=== PATIENT | female | born 1935 | race Caucasian/White ===

== ENCOUNTER 2017-05-16 12:50 | Inpatient (IN) | payer MEDICARE ==
[2017-05-16] MEDS ORDERED: NITROGLYCERIN SL TABS 0.4 MG TAB SUBLINGUAL PRN (13:22)
[2017-05-16] MEDS ORDERED: MORPHINE SULFATE/PF 10MG/10ML VL IVP PRN (13:22)
--- NOTE | 2017-05-16 13:22 | ED ---
Chest Pain HPI - General Chief Complaint: Chest Pain Stated Complaint: Chest pain Time Seen by Provider: 05/16/17 12:59 Source: patient, EMS Mode of arrival: EMS - History of Present Illness Initial Comments: 81 years old female was transferred to us from [facility], she presented there for chest pain for in the morning, first troponin was negative second troponin now was elevated was a 0.053 she was heparinized and [facility] that he requested to transfer and will go to [facility] she was chest pain-free she has a chronic shortness of breath which is ongoing for a long time she denies any pleuritic chest pain no fever no chills she is not coughing up any phlegm no abdominal pain now no frequency urgency dysuria no symptoms of TIA or CVA. She had the EKG done at [facility] showed ST segment depression in 23 aVF and V4 V5 and V6 SX he was unremarkable x-ray showed a questionable infiltrate Is 144 amylase 84 creatinine was 1.7 - Related Data Allergies Allergy/AdvReac Type Severity Reaction Status Date / Time No Known Allergies Allergy Verified 05/16/17 12:53 Review of Systems ROS Statement: Those systems with pertinent positive or pertinent negative responses have been documented in the HPI. ROS Other: All systems not noted in ROS Statement are negative. Past Medical History Past Medical History: Hyperlipidemia, Myocardial Infarction ([place]) Additional Past Medical History / Comment(s): MIGRAINES History of Any Multi-Drug Resistant Organisms: None Reported Past Surgical History: Hysterectomy Past Psychological History: No Psychological Hx Reported Smoking Status: Never smoker Past Alcohol Use History: None Reported Past Drug Use History: None Reported General Exam - General Exam Comments Initial Comments: General: The patient is awake and alert, in no distress, and does not appear acutely ill. Skin: Skin is warm and dry and no rashes or lesions are noted. Eye: Pupils are equal, round and reactive to light, extra-ocular movements are intact; there is normal conjunctiva bilaterally. Ears, nose, mouth and throat: There are moist mucous membranes and no oral lesions. Neck: The neck is supple, there is no tenderness or JVD. Cardiovascular: There is a regular rate and rhythm. No murmur, rub or gallop is appreciated. Respiratory: To auscultation bilateral, crease breath sounds at the bases Gastrointestinal: Soft, non-distended, non-tender abdomen without masses or organomegaly noted. There is no rebound or guarding present. Bowel sounds are unremarkable. Back: There is no tenderness to palpation in the midline. There is no obvious deformity. Musculoskeletal: Normal ROM, no tenderness, There is no pedal edema. There is no calf tenderness or swelling. No cords were appreciated. Neurological: CN II-XII intact, Cranial nerves III through XII are intact. There are no obvious motor or sensory deficits. Coordination appears grossly intact. Speech is normal. Psychiatric: Cooperative, appropriate mood & affect, normal judgment. Course Vital Signs 05/16/17 12:53 Pulse Rate 78 Respiratory 16 Rate - Reevaluation(s) Reevaluation #1: He be admitted to Dr. Brizuela service I think Dr. Etienne is covering him today she artillery or naval gunfire observer consulted 05/16/17 13:21 Disposition Clinical Impression: Chest pain, Pneumonia Disposition: ADMITTED IP TO THIS HOSP Condition: Good Referrals: Irwin Brandon MD [Primary Care Provider] - 1-2 days
[2017-05-16] MEDS ORDERED: SUMAtriptan SUCCINATE 50 MG TAB PO PRN (13:28)
[2017-05-16] MEDS ORDERED: HEPARIN SOD,PORK IN 0.45% NACL 25,000 UNIT in 0.45% NACL 1 500ML.BAG IV SCH (13:30)
[2017-05-16] MEDS ORDERED: MORPHINE ORAL SOLN 10 MG/5 ML CUP PO PRN (15:21)
[2017-05-16] MEDS ORDERED: MELATONIN 3 MG TABLET PO PRN (15:21)
[2017-05-16] MEDS ORDERED: NALOXONE 0.4 MG/ML 1 ML VIAL IV PRN (15:21)
[2017-05-16] MEDS ORDERED: ONDANSETRON 4 MG/2 ML VIAL IVP PRN (15:21)
[2017-05-16 15:27] LABS: Creatine Kinase MB 1.8 ng/mL (0.0-2.4)
[2017-05-16 15:37] LABS: Troponin I 0.143 ng/mL (0.000-0.034)
[2017-05-16] MEDS ORDERED: CALCIUM CARBONATE 500 MG CHEWABLE PO PRN (15:40)
--- NOTE | 2017-05-16 15:42 | P.HPMEDMHU ---
History of Present Illness H&P Date: 05/16/17 Chief Complaint: chest pain Patient is an 81-year-old -[place] African female with a past medical history of hypertension, prior myocardial infarction in 2003, and chronic kidney disease who initially presented to [facility] emergency department with complaints of chest pain. On arrival there she was given a dose of nitro and had immediate relief of her 10/10 chest pain. Her initial troponin was less than 0.012. EKG showed normal sinus rhythm at a rate of 71, normal axis, normal intervals, no ST-T wave changes. Second troponin 4 hours later was increased at 0.053. She was started on a heparin drip and subsequently transferred to our facility. Her BNP was normal at 80, amylase and lipase were negative, mag and phosphorus were normal. Sodium was 142 potassium 4.9 chloride 110 bicarb 19 BUN 42 creatinine 1.7 glucose 108. CBC was normal. PT PTT were normal. On arrival to our ER here she was slightly hypertensive and was on a heparin drip. She was subsequently admitted to the selective care unit. Cardiology has been consulted. Patient seen and examined at bedside. She states that she awoke suddenly with chest pain at around 4 AM this morning. At that point in time she took 2 aspirin chewed them. She thought it felt like indigestion so she tried Tums without relief. She felt nauseated. She denied any change of her shortness of breath. She was not dizzy, diaphoretic, or lightheaded. The pain radiated to her back and was a 10 out of 10. She denied any unusual numbness or tingling. She states she recently ran out of her cholesterol medications. She saw a automatic head sawyer in [place] Dr. Byers last September from a hospital follow-up. She states that she had a stress test 3 years ago at [facility]. She has been having worsening shortness of breath sounds in August. She states she was hospitalized for a week in [place] and they did a battery of tests but were unable to find an answer. She denies having a stress test at that point in time. She states that her shortness of breath is so severe she now gets winded walking from the bedroom to the bathroom. She denies any cough or wheeze. She states that her chest pain was relieved with nitro at [place] and has not come back. She has no prior history of high blood pressure. She does know about chronic kidney disease that she follows with nephrology. Review of Systems Positives and negatives as per HPI, remainder of 12 point review of system is negative. Past Medical History Past Medical History: GERD/Reflux, Hyperlipidemia, Myocardial Infarction ([place]) Additional Past Medical History / Comment(s): MIGRAINES, gout, kidney disease follows with nephrology. never had chicken pox Last Myocardial Infarction Date:: unk History of Any Multi-Drug Resistant Organisms: None Reported Additional Past Surgical History / Comment(s): D&C, johanna cataract(lens implants), egd, colonoscopy, heart cath years ago by dr laurent Past Anesthesia/Blood Transfusion Reactions: No Reported Reaction Smoking Status: Never smoker Past Alcohol Use History: None Reported Past Drug Use History: None Reported Additional History: Lives with her son and daughter, no assistive device - Past Family History Mother Family Medical History: Myocardial Infarction ([place]), Pneumonia Additional Family Medical History / Comment(s): . hx smoking Father Family Medical History: Liver Disease Additional Family Medical History / Comment(s): alcoholic/cirrhosis Medications and Allergies Home Medications Medication Instructions Recorded Confirmed Type Aspirin EC [Ecotrin Low Dose] 81 mg PO DAILY 05/16/17 05/16/17 History SUMAtriptan SUCCINATE [Imitrex] 50 mg PO DAILY PRN 05/16/17 05/16/17 History Allergies Allergy/AdvReac Type Severity Reaction Status Date / Time No Known Allergies Allergy Verified 05/16/17 13:22 Physical Exam Osteopathic Statement: *. No significant issues noted on an osteopathic structural exam other than those noted in the History and Physical/Consult. Vitals: Vital Signs Temp Pulse Resp BP Pulse Ox 05/16/17 13:57 68 20 170/97 100 05/16/17 13:46 68 16 168/90 100 05/16/17 12:53 97.3 F L 78 16 177/91 99 Intake and Output 05/16/17 05/16/17 05/16/17 06:59 14:59 22:59 Other: Weight 102.058 kg General: non toxic, no distress, appears at stated age, normal weight Derm: no unusual rashes/lesions no unusual ecchymoses, warm, dry Head: atraumatic, normocephalic, symmetric Eyes: EOMI, no lid lag, anicteric sclera, pupils equal round reactive to light ENT: Nose and ears atraumatic, no thrush, no pharyngeal erythema Neck: No thyromegaly, no cervical lymphadenopathy, trachea midline, supple Mouth: no lip lesion, mucus membranes moist Cardiovascular: S1S2 reg, no murmur, positive posterior tibial pulse bilateral, no edema, capillary refill less than 2 seconds Lungs: CTA bilateral, no rhonchi, no rales , no accessory muscle use Abdominal: soft, nontender to palpation, no guarding, no appreciable organomegaly, normal bowel sounds Ext: no gross muscle atrophy, muscle strength 5 out of 5 in all 4 extremities grossly, no contractures, Neuro: CN II-XI grossly intact, light touch intact all 4 extremities, finger to nose within normal limits, Psych: Alert, oriented, appropriate affect Cranial Nerve Examination - Cranial Nerves Cranial Nerve II- Optic: Intact Cranial Nerve III- Oculomotor: Intact Cranial Nerve IV- Trochlear: Intact Cranial Nerve V- Trigeminal: Intact Cranial Nerve - Abducens: Intact Cranial Nerve VII- Facial: Intact Cranial Nerve VIII- Auditory: Intact Cranial Nerve IX- Glossopharyngeal: Intact Cranial Nerve X- Vagus: Intact Cranial Nerve XI- Accessory: Intact Cranial Nerve XII- Hypoglossal: Intact Results Comments: Reviewed and as per HPI Chest x-ray: report reviewed Thrombosis Risk Factor Assmnt - DVT/VTE Prophylaxis DVT/VTE Prophylaxis: Pharmacologic Prophylaxis ordered Assessment and Plan Assessment: Chest pain with mildly elevated troponin -Also with increasing dyspnea which could be considered anginal equivalent. -Nitro drip, beta ling, aspirin, Lipitor -Trend troponins -Gentle IV fluids incase cath need in the morning -Nothing by mouth after midnight -Consult cardiology -Telemetry -Repeat EKG -Patient will not do chemical stress test. She states she had a bad reaction in the past. States she had multiple testing done at [facility] in August and will attend to obtain records. Hypertensive urgency -No formal diagnosis of hypertension as outpatient -Start metoprolol 12.5 mg by mouth twice a day -Hold beta ling and morning for possible stress test Dyslipidemia -Lipitor -Check cholesterol profile in a.m. Chronic kidney disease -Unknown baseline, creatinine 1.7 with GFR of 38 at [facility] -Repeat basic metabolic profile in a.m. -If worsening or changes consider nephrology consult GERD -When necessary Tums Social stressors - no PCP currently. Surrogate decision-maker: Daughter Emeli Lawrence CODE STATUS:Full DVT prophylaxis: on Heparin gtt Discussed with: Patient, family, nursing Anticipated discharge: 48-[address]: home A total of 65 minutes was spent on the care of this complex patient more than 50 % of the time was spent in counseling and care coordination.
[2017-05-16] MEDS: METOPROLOL TARTRATE 12.5 MG TAB PO SCH ×2 (16:57→23:49)
[2017-05-16] MEDS: SODIUM CHLORIDE 0.9% 1,000 ML IV SCH (16:57)
[2017-05-16] MEDS ORDERED: METOPROLOL TARTRATE 12.5 MG TAB PO SCH (21:00)
[2017-05-16 21:31] LABS: Creatine Kinase MB 1.9 ng/mL (0.0-2.4)
[2017-05-16 21:35] LABS: Troponin I 0.247 ng/mL (0.000-0.034)
[2017-05-16] MEDS: ATORVASTATIN 40 MG TAB PO SCH (23:49)
[2017-05-17] MEDS: ACETAMINOPHEN TAB 325 MG TAB PO PRN ×2 (06:09→11:09)
[2017-05-17 06:47] LABS: HCT 34.4 % (34.0-46.0); HGB 11.2 gm/dL (11.4-16.0); MCHC 32.6 g/dL (31.0-37.0); MCV 88.8 fL (80.0-100.0); Mean Platelet Volume 7.8; Platelet Count 135 k/uL (150-450); RBC 3.87 m/uL (3.80-5.40); RDW 13.5 % (11.5-15.5); WBC 6.5 k/uL (3.8-10.6)
[2017-05-17 07:26] LABS: Magnesium 1.5 mg/dL (1.6-2.3)
[2017-05-17 07:29] LABS: Calcium 9.8 mg/dL (8.4-10.2); Potassium 4.8 mmol/L (3.5-5.1)
[2017-05-17 08:02] LABS: Lymphocytes # (M) 2.28 k/uL (1.0-4.8); Monocytes # (M) 0.59 k/uL (0-1.0); Neutrophils # (M) 3.45 k/uL (1.3-7.7); Neutrophils % (M) 53 %; Nucleated Red Blood Cells 0 /100 WBC (0-0); Total Cells Counted 100
[2017-05-17] MEDS ORDERED: SODIUM CHLORIDE 0.9% 250 ML IV ONE ×2 (08:34→14:15)
[2017-05-17] MEDS ORDERED: ALPRAZolam 0.5 MG TAB PO PRN (08:35)
[2017-05-17] MEDS ORDERED: NITROGLYCERIN SL TABS 0.4 MG TAB SUBLINGUAL PRN ×2 (08:35→13:17)
[2017-05-17] MEDS ORDERED: ASPIRIN 325 MG TAB PO STA (08:35)
[2017-05-17] MEDS ORDERED: ALPRAZolam 0.25 MG TAB PO PRN (08:35)
[2017-05-17] MEDS ORDERED: ATORVASTATIN 80 MG TAB PO STA (08:35)
[2017-05-17] MEDS: SODIUM CHLORIDE 0.9% 1,000 ML IV SCH ×3 (08:41→23:10)
[2017-05-17] MEDS ORDERED: ASPIRIN 325 MG TAB PO SCH (09:00)
[2017-05-17] MEDS: METOPROLOL TARTRATE 12.5 MG TAB PO SCH (09:24)
--- NOTE | 2017-05-17 09:28 | CONS ---
CONSULTATION CHIEF COMPLAINT: Chest pain. This is an 81-year-old lady with no significant past medical history who presents to hospital complaining of chest pain. She states that she woke up from sleep, had a chest pressure, moderate to severe intensity that radiated to her back and she became somewhat short of breath. She comes in and she initially presented to [facility] and subsequently got transferred to [facility]. Her initial EKG shows sinus rhythm with T-wave changes in the precordial leads. She has had 3 sets of troponins that are elevated at 0.1, 0.2 and 0.3. Given her symptomatology, EKG changes, and the abnormal lab tests, I advised her to undergo cardiac catheterization for further evaluation. She had been explained of risks, benefits and alternatives, understood and accepted. Patient states that she has had shortness of breath 6 to 8 months ago and underwent extensive workup in [place]. Subsequently, she had been followed by a business analytics director in [place] and did not want to follow up with him; hence on this visit, she is sent to [place]. PAST MEDICAL HISTORY: Past medical history is negative for hypertension, diabetes, dyslipidemia. MEDICATIONS: Medications include Imitrex and aspirin. ALLERGIES: No known drug allergies. FAMILY HISTORY: Family history is negative for premature coronary artery disease. SOCIAL HISTORY: Negative for smoking, EtOH abuse, or drug abuse. REVIEW OF SYSTEMS: HEENT is unremarkable. CARDIAC: As described above. RESPIRATORY: Negative. GI: Negative. GENITOURINARY: Negative. ALLERGY/IMMUNOLOGY: Negative. SKIN: Negative. MUSCULOSKELETAL: Negative. ENDOCRINE: Negative. HEMATOLOGICAL: Negative. DERM: Negative. CONSTITUTIONAL: Negative. ONCOLOGICAL: Negative. Rest of the system review is not relevant. PHYSICAL EXAMINATION: On exam, patient is comfortable at rest. Vital signs are stable. There is no jugular venous distention. Carotid upstroke is normal. There is no bruit. Chest exam reveals diminished air entry at the bases. Heart exam reveals first and second heart sounds. No gallop. No murmur. No rub. Abdomen is soft, nontender. Examination of extremities did not reveal edema. Peripheral pulses are felt. LABS: Labs show that the creatinine is 1.4. Three sets of troponins are elevated. Hemoglobin is normal. ASSESSMENT: 1. Acute non ST-segment elevation myocardial infarction. 2. Chronic renal insufficiency. PLAN: I advised the patient to undergo cardiac catheterization to rule out ischemic heart disease. Will decide on further course of action based on the cardiac catheterization findings. Thank you for allowing us to participate in the care of this pleasant lady. CRUZITO / KALEE: [id number] /
[2017-05-17] MEDS ORDERED: IV FLUID CONTINUATION 975 ML IV ONE (09:30)
[2017-05-17] MEDS ORDERED: MIDAZOLAM 2 MG/2 ML VIAL ONE (09:50)
[2017-05-17] MEDS ORDERED: LIDOCAINE 2% INJ 20 MG/ML (20 ML MDV) ONE ×2 (09:50→12:15)
[2017-05-17] MEDS ORDERED: MIDAZOLAM 2 MG/2 ML VIAL IV ONE (09:56)
[2017-05-17] MEDS: MAGNESIUM SULFATE-D5W PMX 1 GM in DEXTROSE/WATER 1 100ML.BAG IVPB SCH ×2 (09:57→11:08)
[2017-05-17] MEDS ORDERED: LIDOCAINE 2% INJ 20 MG/ML SQ ONE (09:59)
[2017-05-17] MEDS ORDERED: IOPAMIDOL-370 125ML BTL INJ ONE ×2 (10:23→13:02)
--- NOTE | 2017-05-17 10:43 | CC ---
CARDIAC CATHETERIZATION REPORT INDICATION: Non ST-segment elevation CO. PROCEDURE NOTE: After obtaining informed consent, left heart catheterization and coronary angiogram were performed via the right femoral artery using standard Jay catheters. Patient tolerated the procedure well without any obvious immediate complications. FINDINGS: 1. HEMODYNAMICS: Left ventricular end-diastolic pressure is 14 mm. There is no significant gradient across the aortic valve. 2. LEFT VENTRICULOGRAM: Left ventriculogram is not performed. 3. ANGIOGRAPHIC DATA: 4. LEFT MAIN CORONARY ARTERY: Left main coronary artery is a normal-sized vessel and is free of stenosis. Divides into left anterior descending coronary artery and circumflex coronary artery. LAD and its branches are free of significant stenosis. Circumflex coronary artery gives off a large caliber OM branch and distally appears subtotally occluded. There are collaterals from the right to the distal circ. 5. Right coronary artery is a large dominant vessel. There is a 70% focal stenosis in the proximal RCA. CONCLUSION: 1. A 70% stenosis involving the proximal right coronary artery. 2. 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 PLAN: I reviewed angiographic data with the patient and patient will undergo angioplasty of the right coronary artery. Given her symptomatology and elevated troponin and the lesion noted in the right coronary artery. Patient received moderate conscious sedation. Total sedation time of 13 minutes. MMODL / IJN: [id number] /
[2017-05-17] MEDS ORDERED: IV FLUID CONTINUATION 1,000 ML IV ONE (12:00)
[2017-05-17] MEDS ORDERED: fentaNYL (PF) 50 MCG/ML 2 ML AMP IVP ONE (12:16)
[2017-05-17] MEDS ORDERED: fentaNYL (PF) 50 MCG/ML 2 ML AMP ONE (12:16)
[2017-05-17] MEDS ORDERED: BIVALIRUDIN BOLUS 250 MG/50 ML IV ONE (12:22)
[2017-05-17] MEDS ORDERED: CLOPIDOGREL 75 MG TAB ONE (12:22)
[2017-05-17] MEDS ORDERED: BIVALIRUDIN 250 MG in SODIUM CHLORIDE 0.9% 50 ML IV ONE ×2 (12:23→12:59)
[2017-05-17] MEDS ORDERED: CLOPIDOGREL 75 MG TAB PO ONE (12:26)
[2017-05-17] MEDS ORDERED: NITROGLYCERIN 1000MCG/10ML SYRINGE INTRACORON ONE (12:26)
[2017-05-17] MEDS ORDERED: ONDANSETRON 4 MG/2 ML VIAL ONE (12:54)
[2017-05-17] MEDS ORDERED: ONDANSETRON 4 MG/2 ML VIAL IVP ONE (12:56)
[2017-05-17] MEDS ORDERED: MAG HYDROX/AL HYDROX/SIMETH 30 ML CUP PO PRN (13:17)
[2017-05-17] MEDS ORDERED: RX INFO: IV CONTRAST WAS GIVEN 1 EACH MISC MISCELLANE PRN (13:17)
[2017-05-17] MEDS ORDERED: ZOLPIDEM 5 MG TAB PO PRN (13:17)
[2017-05-17] MEDS ORDERED: ATROPINE SULFATE 0.1 MG/ML 10ML SYRINGE IV PRN (13:17)
[2017-05-17] MEDS ORDERED: SODIUM CHLORIDE 0.9% 1,000 ML IV SCH (13:30)
[2017-05-17] MEDS ORDERED: CYCLOBENZAPRINE 5 MG TAB PO PRN (14:08)
--- NOTE | 2017-05-17 14:25 | P.PN ---
Subjective Progress Note Date: 05/17/17 Principal diagnosis: Chest pain Patient is an 81-year-old -[place] female with a past medical history of hypertension, prior myocardial infarction in 2003, and chronic kidney disease who initially presented to [facility] emergency department with complaints of chest pain. On arrival there she was given a dose of nitro and had immediate relief of her 10/10 chest pain. Her initial troponin was less than 0.012. EKG showed normal sinus rhythm at a rate of 71, normal axis, normal intervals, no ST-T wave changes. Second troponin 4 hours later was increased at 0.053. She was started on a heparin drip and subsequently transferred to our facility. Her BNP was normal at 80, amylase and lipase were negative, mag and phosphorus were normal. Sodium was 142 potassium 4.9 chloride 110 bicarb 19 BUN 42 creatinine 1.7 glucose 108. CBC was normal. PT and PTT were normal. On arrival to our ER here she was slightly hypertensive and was on a heparin drip. She was subsequently admitted to the selective care unit. Cardiology was consulted and her troponins continued to elevated. She was taken for diagnostic cath 05/17 and subsequently had a stent to the RCA placed. She was also found to have dyslipidemia she knows that she was supposed to be on a cholesterol medication at home, but ran out of it and could not remember its name. Patient seen and examined at bedside. No chest pain, shortness of breath. She complains of nausea, states that she threw up after receiving meds in medical lab specialist. She complains of leg pain, denies leg numbness. Also now having back pain. Just feeling uncomfortable. Per nursing she refused 250 cc bolus earlier prior to cath. This will be given now. Objective - Vital Signs Vital signs: Vital Signs Temp 96.1 F L 05/17/17 11:46 Pulse 63 05/17/17 14:02 Resp 18 05/17/17 14:02 BP 142/70 05/17/17 14:02 Pulse Ox 95 05/17/17 14:02 Intake & Output 05/16/17 05/17/17 05/17/17 18:59 06:59 18:59 Intake Total 240 1271.333 465.2 Output Total 0 Balance 240 1271.333 465.2 Weight 102.058 kg 101.4 kg Intake: IV 1120 465.2 Heparin Sod,Pork in 0.45% 320 NaCl 25,000 unit In 0.45 % NaCl 1 500ml.bag @ 9.8 UNITS/KG/HR 20 mls/hr IV .Q24H BISHNU Rx#:[id number] Sodium Chloride 0.9% 1, 800 000 ml @ 50 mls/hr IV . Q20H BISHNU Rx#:[id number] Intake, IV Titration 151.333 Amount Heparin Sod,Pork in 0.45% 151.333 NaCl 25,000 unit In 0.45 % NaCl 1 500ml.bag @ 9.8 UNITS/KG/HR 20 mls/hr IV .Q24H BISHNU Rx#:[id number] Oral 240 Output: Urine 0 Other: Voiding Method Toilet # Voids 1 - Labs CBC & Chem 7: 05/17/17 06:03 05/17/17 06:03 Labs: Abnormal Lab Results - Last 24 Hours (Table) 05/16/17 05/16/17 05/16/17 Range/Units 14:27 20:43 20:43 Hgb (11.4-16.0) gm/dL Plt Count (150-450) k/uL APTT 44.8 H (22.0-30.0) sec Chloride (98-107) mmol/L Carbon Dioxide (22-30) mmol/L BUN (7-17) mg/dL Creatinine (0.52-1.04) mg/dL Magnesium (1.6-2.3) mg/dL Troponin I 0.143 H* 0.247 H* (0.000-0.034) ng/mL Cholesterol (<200) mg/dL LDL Cholesterol, Calc (0-99) mg/dL 05/17/17 05/17/17 05/17/17 Range/Units 03:38 06:03 06:03 Hgb 11.2 L (11.4-16.0) gm/dL Plt Count 135 L (150-450) k/uL APTT 55.3 H (22.0-30.0) sec Chloride (98-107) mmol/L Carbon Dioxide (22-30) mmol/L BUN (7-17) mg/dL Creatinine (0.52-1.04) mg/dL Magnesium 1.5 L (1.6-2.3) mg/dL Troponin I (0.000-0.034) ng/mL Cholesterol 219 H (<200) mg/dL LDL Cholesterol, Calc 142 H (0-99) mg/dL 05/17/17 05/17/17 Range/Units 06:03 06:03 Hgb (11.4-16.0) gm/dL Plt Count (150-450) k/uL APTT (22.0-30.0) sec Chloride 112 H (98-107) mmol/L Carbon Dioxide 20 L (22-30) mmol/L BUN 32 H (7-17) mg/dL Creatinine 1.44 H (0.52-1.04) mg/dL Magnesium (1.6-2.3) mg/dL Troponin I 0.322 H* (0.000-0.034) ng/mL Cholesterol (<200) mg/dL LDL Cholesterol, Calc (0-99) mg/dL Assessment and Plan Assessment: NSETMI S/p PCI to RCA - cardio recs appreciated - ASA, lipitor, BB, plavix - 250 cc bolus reordered as patient had refused first. - Telemetry - cardio recs - back cramping due to laying flat- prn norco and flexeril Hypertensive urgency,improved - Metoprolol increased to 25 mg BID by cardio -Hold beta ling and morning for possible stress test Dyslipidemia -Lipitor -Check cholesterol profile in a.m. Chronic kidney disease -Unknown baseline - Cr improved today - Continue IV with contrast exposure - Repeat basic metabolic profile in a.m. - If worsening or changes consider nephrology consult GERD -When necessary Tums Social stressors - no PCP currently. DVT prophylaxis: heparin Discussed with: Patient, family, nursing Anticipated discharge: [address]: home A total of 35 minutes was spent on the care of this complex patient more than 50 % of the time was spent in counseling and care coordination.
--- NOTE | 2017-05-17 14:34 | PTCA ---
PERCUTANEOUSTRANS CORORONARY ANGIOGRAPHY Mrs. Lawrence is an 81-year-old female who presented to [facility] with symptoms of chest discomfort and mild elevation of her troponin. She underwent cardiac catheterization by Dr. 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 In view of that, recommendation was made regarding coronary angioplasty and stenting. The procedure as well as risks and the complication were discussed with the patient who is in full understanding and agreement. PROCEDURE: A 6-[place] FR4 guiding catheter was introduced the system. After cannulating the right coronary ostium, a 0.014 balanced medium weight J-wire was advanced across the lesion and positioned distally. Following that, attempt to advance a 2.75 x 18 mm Xience Alpine stent were unsuccessful. That stent was removed and a 2.5 x 12 mm Trek balloon was advanced though could not cross the lesion. That balloon was removed and another 0.014 balanced medium weight J-wire was advanced next to the first wire in a shruthi fashion and subsequently attempt to advance the 2.5 balloon were unsuccessful. After removing that balloon, a 1.5 x 6 mm Trek balloon was advanced. Multiple inflations at 10 atmospheres were done. The balloon was removed and subsequently a 2.0 x 8 mm Trek balloon was advanced and inflation to 10 atmospheres was done. Following that, the balloon was removed and a 2.5 x 12 mm Trek balloon was advanced and inflation at maximum of 10 atmospheres was done. After that, the balloon was removed and the 2.75 x 15 x 18 mm Xience Alpine stent was advanced, deployed and post dilated at 14 atmospheres. After the last inflation, after appropriate wait, the balloon and the guidewire were withdrawn back in the guiding catheter. Those images were obtained and repeated, that revealed stable, successful stenting. At that point, the guiding catheter, the balloon and the guidewire were removed. The sheath was removed. Hemostasis was obtained with deployment of an Angio-Seal. There was no immediate complication. Patient was returned to her room in stable condition. Of note, that the patient received Angiomax per protocol as was oral loading dose of clopidogrel. She had EKG changes with the inflation without any significant chest pain. At the beginning of the procedure, sheath was exchanged using a guidewire exchange technique. RESULTS: Successful stenting of the heavily calcified proximal right coronary artery with reduction of stenosis from 80% to 0%. RECOMMENDATION: Patient will be continued on aspirin, Plavix, and statin. The importance of dual antiplatelet treatment was discussed with the patient and her family and are in full understanding and agreement. Duration procedure 48 minutes. CRUZITO / KALEE: [id number] /
[2017-05-17] MEDS: HYDROcodone/APAP 5-325MG 1 EACH TAB PO PRN ×2 (14:37→20:37)
[2017-05-17 15:33] VITALS: BMI 34.9
[2017-05-17] MEDS: ATORVASTATIN 40 MG TAB PO SCH (20:36)
[2017-05-17] MEDS: METOPROLOL TARTRATE 25 MG TAB PO SCH (20:37)
[2017-05-18] MEDS: ACETAMINOPHEN TAB 325 MG TAB PO PRN (04:20)
[2017-05-18] MEDS: SODIUM CHLORIDE 0.9% 1,000 ML IV SCH ×2 (05:51→17:12)
[2017-05-18 06:15] LABS: HCT 31.1 % (34.0-46.0); HGB 9.9 gm/dL (11.4-16.0); MCH 28.3 pg (25.0-35.0); MCHC 31.9 g/dL (31.0-37.0); MCV 88.7 fL (80.0-100.0); Mean Platelet Volume 8.3; Platelet Count 111 k/uL (150-450); RDW 13.7 % (11.5-15.5); WBC 6.2 k/uL (3.8-10.6)
[2017-05-18 06:26] LABS: Calcium 9.1 mg/dL (8.4-10.2); Magnesium 1.8 mg/dL (1.6-2.3); Potassium 4.6 mmol/L (3.5-5.1); Total Bilirubin 0.3 mg/dL (0.2-1.3); Total Protein 6.4 g/dL (6.3-8.2)
[2017-05-18] MEDS: METOPROLOL TARTRATE 25 MG TAB PO SCH ×2 (08:25→20:14)
[2017-05-18] MEDS: HEPARIN SODIUM,PORCINE 5,000 UNIT/ML 1 ML VIAL SQ SCH ×3 (08:25→23:45)
[2017-05-18] MEDS: ASPIRIN 81 MG PO SCH (08:25)
[2017-05-18] MEDS ORDERED: SUMAtriptan SUCCINATE 50 MG TAB PO STA (09:25)
--- NOTE | 2017-05-18 09:32 | P.PN ---
Subjective Progress Note Date: 05/18/17 Principal diagnosis: Chest pain Patient is an 81-year-old -[place] female with a past medical history of hypertension, prior myocardial infarction in 2003, and chronic kidney disease who initially presented to [facility] emergency department with complaints of chest pain. On arrival there she was given a dose of nitro and had immediate relief of her 10/10 chest pain. Her initial troponin was less than 0.012. EKG showed normal sinus rhythm at a rate of 71, normal axis, normal intervals, no ST-T wave changes. Second troponin 4 hours later was increased at 0.053. She was started on a heparin drip and subsequently transferred to our facility. Her BNP was normal at 80, amylase and lipase were negative, mag and phosphorus were normal. Sodium was 142 potassium 4.9 chloride 110 bicarb 19 BUN 42 creatinine 1.7 glucose 108. CBC was normal. PT and PTT were normal. On arrival to our ER here she was slightly hypertensive and was on a heparin drip. She was subsequently admitted to the selective care unit. Cardiology was consulted and her troponins continued to elevated. She was taken for diagnostic cath 05/17 and subsequently had a stent to the RCA placed. She was also found to have dyslipidemia she knows that she was supposed to be on simvastatin at home, but ran out of it. On the morning after cath her renal function was stable. Patient seen and examined at bedside. Complains of a severe headache starting at 4 AM and asking for her Imitrex. No chest pain or shortness of breath. No leg pain, nausea, or vomiting. Objective - Vital Signs Vital signs: Vital Signs Temp 97.3 F L 05/18/17 08:00 Pulse 71 05/18/17 08:00 Resp 17 05/18/17 08:00 BP 122/58 05/18/17 08:00 Pulse Ox 97 05/18/17 08:00 Intake & Output 05/17/17 05/18/17 05/18/17 18:59 06:59 18:59 Intake Total 687.2 1800 480 Output Total 800 Balance -112.8 1800 480 Weight 101.4 kg 105.5 kg Intake: IV 465.2 1800 Sodium Chloride 0.9% 1, 1800 000 ml @ 100 mls/hr IV . Q10H [facility] Rx#:[id number] Oral 222 480 Output: Urine 800 Other: Voiding Method Bedpan Toilet Toilet # Voids 1 - Exam General: non toxic, mild distress, appears at stated age Derm: warm, dry Head: atraumatic, normocephalic, symmetric Eyes: EOMI, no lid lag, anicteric sclera Mouth: no lip lesion, mucus membranes moist Cardiovascular: S1S2 reg, no murmur, positive posterior tibial pulse bilateral, Lungs: CTA bilateral, no rhonchi, no rales , no accessory muscle use Abdominal: soft, nontender to palpation, no guarding, no appreciable organomegaly Ext: no gross muscle atrophy, no edema, no contractures Neuro: CN II-XI grossly intact, no focal neuro deficits Psych: Alert, oriented, appropriate affect - Labs CBC & Chem 7: 05/18/17 05:49 05/18/17 05:49 Labs: Abnormal Lab Results - Last 24 Hours (Table) 05/18/17 05/18/17 Range/Units 05:49 05:49 RBC 3.50 L (3.80-5.40) m/uL Hgb 9.9 L (11.4-16.0) gm/dL Hct 31.1 L (34.0-46.0) % Plt Count 111 L (150-450) k/uL Chloride 110 H (98-107) mmol/L Carbon Dioxide 21 L (22-30) mmol/L BUN 20 H (7-17) mg/dL Creatinine 1.43 H (0.52-1.04) mg/dL Albumin 3.0 L (3.5-5.0) g/dL Microbiology - Last 24 Hours (Table) 05/16/17 20:43 Blood Culture - Preliminary Blood No Growth after 24 hours 05/16/17 15:46 Blood Culture - Preliminary Blood No Growth after 24 hours Assessment and Plan Assessment: NSETMI S/p PCI to RCA - cardio recs appreciated - ASA, lipitor, BB, plavix - Telemetry - cardio recs - echo Headache - d/w cardio and they are okay with restarting her imitrex Hypertensive urgency,improved - continue Metoprolol Dyslipidemia - statin Chronic kidney disease - near baseline that patient reports of 1.3 - repeat BMP in AM GERD -When necessary Tums Social stressors - now states that she is seeing a PA at her prior doctors office. hypomagnesemia, resolved. DVT prophylaxis: heparin Discussed with: Patient, nursing Anticipated discharge: [address]: home A total of 35 minutes was spent on the care of this complex patient more than 50 % of the time was spent in counseling and care coordination.
--- NOTE | 2017-05-18 10:19 | P.PN ---
Subjective Progress Note Date: 05/18/17 Principal diagnosis: Myocardial infarction This is a pleasant 81-year-old -[place] female with no significant past medical history who presented to the hospital with symptoms of chest discomfort. She initially presented to [facility] and subsequently was transferred here. Patient was seen in consultation yesterday by Dr. Holder, she was noted to have EKG changes as well as abnormal troponins and for this reason she was taken to the cardiac catheterization lab. Patient underwent angioplasty and stenting of complex lesion in the right coronary artery by Dr. Rodriguez. She was seen and examined this morning, denies any chest pain or difficulty in breathing. Echocardiogram with Doppler study remains pending. Blood pressure 122/58, heart rate in the 70s, respirations 18. Hemoglobin 9.9, 11.2 yesterday. Sodium 142, potassium 4.6, BUN 20, creatinine 1.4. Objective - Vital Signs Vital signs: Vital Signs Temp 97.3 F L 05/18/17 08:00 Pulse 71 05/18/17 08:00 Resp 17 05/18/17 08:00 BP 122/58 05/18/17 08:00 Pulse Ox 97 05/18/17 08:00 Intake & Output 05/17/17 05/18/17 05/18/17 18:59 06:59 18:59 Intake Total 687.2 1800 480 Output Total 800 Balance -112.8 1800 480 Weight 101.4 kg 105.5 kg Intake: IV 465.2 1800 Sodium Chloride 0.9% 1, 1800 000 ml @ 100 mls/hr IV . Q10H [facility] Rx#:[id number] Oral 222 480 Output: Urine 800 Other: Voiding Method Bedpan Toilet Toilet # Voids 1 - Exam PHYSICAL EXAMINATION: HEENT: Head is atraumatic, normocephalic. Pupils equal, round. Neck is supple. There is no elevated jugular venous pressure. HEART EXAMINATION: Heart S1, S2 normal. No murmur or gallop heard. CHEST EXAMINATION: Lungs are clear to auscultation and precussion. No chest wall tenderness is noted on palpation or with deep breathing. ABDOMEN: Soft, nontender. Bowel sounds are heard. No organomegaly noted. Right groin soft, no evidence of any hematoma. EXTREMITIES: 2+ peripheral pulses with no evidence of peripheral edema and no calf tenderness noted. NEUROLOGIC patient is awake, alert and oriented -3. . - Labs CBC & Chem 7: 05/18/17 05:49 05/18/17 05:49 Labs: Abnormal Lab Results - Last 24 Hours (Table) 05/18/17 05/18/17 Range/Units 05:49 05:49 RBC 3.50 L (3.80-5.40) m/uL Hgb 9.9 L (11.4-16.0) gm/dL Hct 31.1 L (34.0-46.0) % Plt Count 111 L (150-450) k/uL Chloride 110 H (98-107) mmol/L Carbon Dioxide 21 L (22-30) mmol/L BUN 20 H (7-17) mg/dL Creatinine 1.43 H (0.52-1.04) mg/dL Albumin 3.0 L (3.5-5.0) g/dL Microbiology - Last 24 Hours (Table) 05/16/17 20:43 Blood Culture - Preliminary Blood No Growth after 24 hours 05/16/17 15:46 Blood Culture - Preliminary Blood No Growth after 24 hours Assessment and Plan Plan: Assessment and plan 1 non-ST elevation myocardial infarction, status post angioplasty and stenting of the right coronary artery. #2 chronic kidney disease #3 hyperlipidemia Plan We will review the echocardiogram with Doppler study. Continue current medical therapy including dual antiplatelet therapy, statin, and metoprolol. Creatinine remained 1.4, at this time we will hold off from the addition of an RAUL inhibitor until follow-up in the office. We will repeat a CBC tomorrow. Plan for possible discharge home in 24 hours if stable. DNP note has been reviewed, I agree with a documented findings and plan of care. Patient was seen and examined.
[2017-05-18] MEDS: CLOPIDOGREL 75 MG TAB PO SCH (11:51)
--- NOTE | 2017-05-18 14:27 | ECHOF ---
Referral Reason:nstemi, shortness of breath MEASUREMENTS -------- HEIGHT: 170.2 cm WEIGHT: 105.2 kg BP: 124/72 RVIDd: 2.7 cm (< 3.3) IVSd: 1.2 cm (0.6 - 1.1) LVIDd: 3.8 cm (3.9 - 5.3) LVPWd: 1.1 cm (0.6 - 1.1) IVSs: 1.5 cm LVIDs: 3.1 cm LVPWs: 1.5 cm LAESV Index (A-L): 26.23 ml/m Ao Diam: 3.3 cm (2.0 - 3.7) AV Cusp: 1.3 cm (1.5 - 2.6) LA Diam: 4.0 cm (2.7 - 3.8) EPSS: 0.2 cm MV E Keegan: 0.65 m/s MV DecT: 239 ms MV A Keegan: 0.70 m/s MV E/A Ratio: 0.93 RAP: 5.00 mmHg RVSP: 32.04 mmHg MV EF SLOPE: 131.66 mm/s (70 - 150) MV EXCURSION: 1.99 cm (> 18.000) FINDINGS -------- Sinus rhythm. This was a technically difficult study with suboptimal views. The left ventricular size is normal. There is mild concentric left ventricular hypertrophy. Overa ll left ventricular systolic function is low-normal with, an EF between 50 - 55 %. The right ventricle is normal in size and function. Normal LA size by volume 22+/-6 ml/m2. RA appears enlarged. 3ml of Lumason was utilized for enhancement of images. Aortic valve is trileaflet and is moderately thickened. There is no evidence of aortic regurgitatio n. There is no evidence of aortic stenosis. The mitral valve leaflets are mildly thickened. There is trace to mild mitral regurgitation. Trace tricuspid regurgitation present. Right ventricular systolic pressure is normal at < 35 mmHg. There is no evidence of pulmonary hypertension. The pulmonic valve was not well visualized. 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 Normal inferior vena cava with normal inspiratory collapse consistent with estimated right atrial pre ssure of 5 mmHg. There is no pericardial effusion. CONCLUSIONS -------- 1. Sinus rhythm. 2. This was a technically difficult study with suboptimal views. 3. The left ventricular size is normal. 4. There is mild concentric left ventricular hypertrophy. 5. Overall left ventricular systolic function is low-normal with, an EF between 50 - 55 %. 6. Normal LA size by volume 22+/-6 ml/m2. 7. RA appears enlarged. 8. 3ml of Lumason was utilized for enhancement of images. 9. Aortic valve is trileaflet and is moderately thickened. 10. The mitral valve leaflets are mildly thickened. 11. There is trace to mild mitral regurgitation. 12. Trace tricuspid regurgitation present. 13. Right ventricular systolic pressure is normal at < 35 mmHg. 14. There is no evidence of pulmonary hypertension. 15. The pulmonic valve was not well visualized. 16. 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 17. There is no pericardial effusion. HOME HEALTH AID: Evan Vásquez RDCS
[2017-05-18] MEDS: ATORVASTATIN 40 MG TAB PO SCH (20:14)
[2017-05-18] MEDS: HYDROcodone/APAP 5-325MG 1 EACH TAB PO PRN (22:44)
[2017-05-19] MEDS: SODIUM CHLORIDE 0.9% 1,000 ML IV SCH (05:10)
[2017-05-19 07:10] LABS: Calcium 9.3 mg/dL (8.4-10.2); Potassium 4.7 mmol/L (3.5-5.1)
[2017-05-19] MEDS ORDERED: MORPHINE SULF 5MG/10ML VL IVP PRN (07:49)
[2017-05-19] MEDS: METOPROLOL TARTRATE 25 MG TAB PO SCH (08:02)
[2017-05-19] MEDS: CLOPIDOGREL 75 MG TAB PO SCH (08:02)
[2017-05-19] MEDS: ASPIRIN 81 MG PO SCH (08:02)
[2017-05-19] MEDS: HEPARIN SODIUM,PORCINE 5,000 UNIT/ML 1 ML VIAL SQ SCH (08:03)
[2017-05-19 08:22] VITALS: BP 109/65; PULSE 66; RESP 16; TEMP 97.3
--- NOTE | 2017-05-19 08:26 | P.PN ---
Subjective Progress Note Date: 05/19/17 Principal diagnosis: coronary artery disease this is a pleasant 81-year-old [place] female patient who presented to the hospital with a chest discomfort and was ruled in for acute coronary event. The patient underwent a heart catheterization and was found to have severe disease involving the RCA which was stented. She denies having any chest pain or discomfort or difficulty breathing. The vitals are stable. The echocardiogram revealed normal LV function. From a perivascular standpoint of view, the patient can be discharged home. Currently she is on dual antiplatelet therapy as well as a statin and metoprolol. Objective - Vital Signs Vital signs: Vital Signs Temp 97.3 F L 05/19/17 08:00 Pulse 66 05/19/17 08:00 Resp 16 05/19/17 08:00 BP 109/65 05/19/17 08:00 Pulse Ox 94 L 05/19/17 08:00 Intake & Output 05/18/17 05/19/17 05/19/17 18:59 06:59 18:59 Intake Total 960 510 Balance 960 510 Weight 105.3 kg Intake: IV 30 Sodium Chloride 0.9% 1, 30 000 ml @ 100 mls/hr IV . Q10H [facility] Rx#:[id number] Oral 960 480 Other: Voiding Method Toilet Toilet # Voids 2 - Constitutional General appearance: Present: no acute distress - Respiratory Respiratory: bilateral: CTA - Cardiovascular Rhythm: regular Heart sounds: normal: S1, S2 - Labs CBC & Chem 7: 05/18/17 05:49 05/19/17 05:43 Labs: Abnormal Lab Results - Last 24 Hours (Table) 05/19/17 Range/Units 05:43 Chloride 110 H (98-107) mmol/L BUN 22 H (7-17) mg/dL Creatinine 1.57 H (0.52-1.04) mg/dL Microbiology - Last 24 Hours (Table) 05/16/17 20:43 Blood Culture - Preliminary Blood No Growth after 48 hours 05/16/17 15:46 Blood Culture - Preliminary Blood No Growth after 48 hours Assessment and Plan Assessment: Assessment #1 severe coronary artery disease and status post RCA stenting #2 acute coronary syndrome with acute non-ST elevation GA #3 dyslipidemia Plan #1 the patient can be discharged home #2 she is to be on dual antiplatelet therapy #3 follow-up with the patient as an outpatient with Dr. Holder.
--- NOTE | 2017-05-19 09:15 | P.DS ---
Providers Date of admission: 05/16/17 13:22 Expected date of discharge: 05/19/17 Attending physician: Scott Delacruz MD Consults: 05/16/17 13:22 Consult Physician Urgent Consulting Provider: Maciej Holdre Consult Reason/Comments: Myocardial infarction Do you want consulting provider notified?: Yes 05/17/17 13:17 Consult Physician Routine Consulting Provider: [facility] Consult Reason/Comments: Post Interventional patient Do you want consulting provider notified?: Already Contacted Primary care physician: Modesto Singh MD - Discharge Diagnosis(es) (1) NSTEMI (non-ST elevated myocardial infarction) Current Visit: Yes Status: Acute (2) Headache Current Visit: Yes Status: Acute (3) Hypertensive urgency Current Visit: Yes Status: Acute (4) Dyslipidemia Current Visit: Yes Status: Acute (5) CKD (chronic kidney disease) Current Visit: Yes Status: Acute (6) GERD (gastroesophageal reflux disease) Current Visit: Yes Status: Acute (7) Obesity (BMI 30-39.9) Current Visit: Yes Status: Acute Hospital Course: Patient is an 81-year-old -[place] female with a past medical history of hypertension, prior myocardial infarction in 2003, and chronic kidney disease who initially presented to [facility] emergency department with complaints of chest pain. On arrival there she was given a dose of nitro and had immediate relief of her 10/10 chest pain. Her initial troponin was less than 0.012. EKG showed normal sinus rhythm at a rate of 71, normal axis, normal intervals, no ST-T wave changes. Second troponin 4 hours later was increased at 0.053. She was started on a heparin drip and subsequently transferred to our facility. Her BNP was normal at 80, amylase and lipase were negative, mag and phosphorus were normal. Sodium was 142 potassium 4.9 chloride 110 bicarb 19 BUN 42 creatinine 1.7 glucose 108. CBC was normal. PT and PTT were normal. On arrival to our ER here she was slightly hypertensive and was on a heparin drip. She was subsequently admitted to the selective care unit. Cardiology was consulted and her troponins continued to elevated. She was taken for diagnostic cath 05/17 and subsequently had a stent to the RCA placed. She was also found to have dyslipidemia she knows that she was supposed to be on simvastatin at home, but ran out of it. On the morning after cath her renal function was stable. She continued to improve. She will be on plavix, AsA , lipitor, metoprolol at discharge. She will need a repeat BMP in 1 week and will have this when she follows up with Yue Wang NP. She will follow with Dr. Holder in [place]. Patient seen and examined at bedside. No chest pain, SOB, nausea, or vomiting, MIGUEL resolved but having neck pain from sleeping wrong. Vital signs reviewed and stable. General: non toxic, no distress, appears at stated age Derm: warm, dry Head: atraumatic, normocephalic, symmetric Eyes: EOMI, no lid lag, anicteric sclera Mouth: no lip lesion, mucus membranes moist Cardiovascular: S1S2 reg, no murmur, positive posterior tibial pulse bilateral, Lungs: CTA bilateral, no rhonchi, no rales , no accessory muscle use Abdominal: soft, nontender to palpation, no guarding, no appreciable organomegaly Ext: no gross muscle atrophy, no edema, no contractures Neuro: CN II-XI grossly intact, no focal neuro deficits Psych: Alert, oriented, appropriate affect A total of 35 minutes of time were spent preparing this complex discharge summary . Patient Condition at Discharge: Good Plan - Discharge Summary Discharge Rx Participant: No New Discharge Prescriptions: New Aspirin 81 mg PO DAILY chew Atorvastatin [Lipitor] 40 mg PO HS #30 tablet Clopidogrel [Plavix] 75 mg PO DAILY #30 tablet Metoprolol Tartrate 25 mg PO BID #60 tab Nitroglycerin 0.4 mg SL Q5M #14 tab.subl Continue SUMAtriptan SUCCINATE [Imitrex] 50 mg PO DAILY PRN PRN Reason: Migraine Headache Aspirin EC [Ecotrin Low Dose] 81 mg PO DAILY Discharge Medication List Aspirin EC [Ecotrin Low Dose] 81 mg PO DAILY 05/16/17 [History] SUMAtriptan SUCCINATE [Imitrex] 50 mg PO DAILY PRN 05/16/17 [History] Aspirin 81 mg PO DAILY chew 05/19/17 [Rx] Atorvastatin [Lipitor] 40 mg PO HS #30 tablet 05/19/17 [Rx] Clopidogrel [Plavix] 75 mg PO DAILY #30 tablet 05/19/17 [Rx] Metoprolol Tartrate 25 mg PO BID #60 tab 05/19/17 [Rx] Nitroglycerin 0.4 mg SL Q5M #14 tab.subl 05/19/17 [Rx] Follow up Appointment(s)/Referral(s): Irwin Brandon MD [REFERRING] - 1-2 days Maciej Holedr MD [STAFF PHYSICIAN] - 1 Week Ambulatory/Diagnostic Orders: Basic Metabolic Panel [LAB.AMB] Location: Determined By Patient Basic Metabolic Panel [LAB.AMB] Location: Determined By Patient Basic Metabolic Panel [LAB.AMB] Location: Determined By Patient
== END 2017-05-19 12:14 | disposition home or self-care (01) | DRG 247 ==
LOC: EC 12:50 → 6SEL 13:22
PROVIDERS: ADMIT Family Medicine; ATTEND Family Medicine
PROC: 4A023N7 Measurement of Cardiac Sampling and Pressure, Left Heart, Percutaneous Approach (ICD-10-PCS; 2017-05-17)
PROC: B211YZZ Fluoroscopy of Multiple Coronary Arteries using Other Contrast (ICD-10-PCS; 2017-05-17)
PROC: 027034Z Dilation of Coronary Artery, One Artery with Drug-eluting Intraluminal Device, Percutaneous Approach (ICD-10-PCS; principal; 2017-05-17 09:46)
DX: I21.4 Non-ST elevation (NSTEMI) myocardial infarction (principal); N18.3 Chronic kidney disease, stage 3 (moderate); E83.42 Hypomagnesemia; I25.10 Atherosclerotic heart disease of native coronary artery without angina pectoris; I16.0 Hypertensive urgency; I12.9 Hypertensive chronic kidney disease with stage 1 through stage 4 chronic kidney disease, or unspecified chronic kidney disease; E78.5 Hyperlipidemia, unspecified; E66.9 Obesity, unspecified; K21.9 Gastro-esophageal reflux disease without esophagitis; I25.2 Old myocardial infarction; G43.909 Migraine, unspecified, not intractable, without status migrainosus; M10.9 Gout, unspecified; Z68.36 Body mass index [BMI] 36.0-36.9, adult; Z71.3 Dietary counseling and surveillance; Z79.82 Long term (current) use of aspirin; Z79.899 Other long term (current) drug therapy; Z98.42 Cataract extraction status, left eye; Z98.41 Cataract extraction status, right eye; Z90.710 Acquired absence of both cervix and uterus; Z96.1 Presence of intraocular lens; Z82.49 Family history of ischemic heart disease and other diseases of the circulatory system; Z83.79 Family history of other diseases of the digestive system; Z81.1 Family history of alcohol abuse and dependence
CPT/HCPCS: 80048; 80053; 80061; 82550; 82553; 83735; 84484; 85027; 85730; 87040; 93306; 93458; 99285